=== PATIENT | female | born 1970 | race Caucasian/White ===

== ENCOUNTER 2016-07-31 08:00 | Outpatient (CLI) | payer OTHER | END 2016-07-31 08:01 | disposition home or self-care (01) | DX: E11.9 Type 2 diabetes mellitus without complications (principal) ==

== ENCOUNTER 2022-02-16 09:47 | Outpatient (CLI) | payer BC ==
--- NOTE | 2022-02-17 09:12 | Mammography Report ---
BILATERAL DIGITAL SCREENING MAMMOGRAM 3D/2D WITH EXAGGERATED CC: 02/16/2022 CLINICAL: Routine screening. Baseline exam. No prior exams were available for comparison. There are scattered fibroglandular elements in both br easts. There is possible low density architectural distortion in the left breast at 1 o'clock middle depth. No other significant masses, calcifications, or other findings are seen in either breast. IMPRESSION: INCOMPLETE: NEEDS ADDITIONAL IMAGING EVALUATION The possible low density architectural distortion in the left breast is indeterminate. Additional vi ews with possible ultrasound are recommended. Based on the Tyrer Cuzick model (a risk assessment model) the patients lifetime risk is 6.7% and her 10 year risk is 1.7%. According to the ACR, ACS, and NCCN guidelines, an annual breast MRI exam lainey g with mammogram is recommended if the patients lifetime risk is 20% or greater. This exam was interpreted at Station ID: [id number]. NOTE: For mammograms, a report in lay terms will be sent to the patient. Approximately 15% of breast malignancies will not be visualized mammographically. In the management of a palpable breast mass, a negative mammogram must not discourage biopsy of a clinically suspicious lesion. Electronically Signed By: Triston joseph/carol ann:02/16/2022 13:02:42 ACR BI-RADS Category 0: Incomplete 3340F PARENCHYMAL PATTERN: (A) - The breast(s) demonstrate(s) scattered fibroglandular densities. BI-RADS CATEGORY: (0) - 0 Mammo and [place] [id number] Immediate follow-up LATERALITY: (L)
== END 2022-02-16 09:48 | disposition home or self-care (01) ==
LOC: DI.S 09:47
PROVIDERS: ATTEND Registered Nurse
DX: Z12.31 Encounter for screening mammogram for malignant neoplasm of breast (principal); R92.8 Other abnormal and inconclusive findings on diagnostic imaging of breast

== ENCOUNTER 2022-04-21 10:12 | Outpatient (CLI) | payer BC ==
--- NOTE | 2022-04-22 10:15 | Mammography Report ---
UNILATERAL LEFT DIGITAL DIAGNOSTIC MAMMOGRAM 3D/2D: 04/21/2022 CLINICAL: Patient returns today to evaluate an architectural distortion in the left breast. Comparison is made to exam dated: 02/16/2022 mammogram - [facility]. There are scattered areas of fibroglandular density in the left breast (category b / 25%-50% glandula r tissue). There is possible architectural distortion in the left breast at 1 o'clock middle depth. This is not seen in additional views. This is less prominent. No other significant masses or calcifications are seen in the breast. IMPRESSION: INCOMPLETE: NEEDS ADDITIONAL IMAGING EVALUATION The possible architectural distortion in the left breast is indeterminate. An ultrasound is recommen ded. Based on the Tyrer Cuzick model (a risk assessment model) the patients lifetime risk is 6.7% and her 10 year risk is 1.7%. According to the ACR, ACS, and NCCN guidelines, an annual breast MRI exam lainey g with mammogram is recommended if the patients lifetime risk is 20% or greater. This exam was interpreted at Station ID: [id number]. NOTE: For mammograms, a report in lay terms will be sent to the patient. Approximately 15% of breast malignancies will not be visualized mammographically. In the management of a palpable breast mass, a negative mammogram must not discourage biopsy of a clinically suspicious lesion. Electronically Signed By: Sigifredo Cruz M.D. lc/:04/21/2022 11:13:57 ACR BI-RADS Category 0: Incomplete 3340F PARENCHYMAL PATTERN: (A) - The breast(s) demonstrate(s) scattered fibroglandular densities. BI-RADS CATEGORY: (0) - 0 Ultrasound recall n/a LATERALITY: (B)
--- NOTE | 2022-04-22 10:15 | Ultrasound Report ---
LIMITED ULTRASOUND OF LEFT BREAST: 04/21/2022 CLINICAL: Follow up from addtional views. No prior exams were available for comparison. Color flow ultrasound of the left breast 1 o'clock region was performed. Real-time ultrasonography of left breast was performed with computer guidance to assure complete coverage of the breast tissue and to provide a uniform data set. Images were transferred to a viewing station for 3-D rendering. There are two 0.2-0.3 cm oil cysts in the left breast at 1 o'clock middle depth 3 cm from the nipple. This correlates with mammography findings. IMPRESSION: BENIGN There is no sonographic evidence of malignancy. There are two 0.2-0.3cm oil cysts in the left breast. These are benign. There is no abnormality seen in the left breast to correspond with mammographic abnormality at 1 o'cl ock which likely represents normal fibroglandular tissue. Return to annual mammogram screening schedule is recommended. This exam was interpreted at Station ID: [id number]. Electronically Signed By: Sigifredo Cruz M.D. lc/:04/21/2022 11:18:02 Ultrasound BI-RADS: 2 Benign BI-RADS CATEGORY: (2) - 2 Mammogram [id number] return to screening LATERALITY: (B)
== END 2022-04-21 10:13 | disposition home or self-care (01) ==
LOC: DI 10:12
PROVIDERS: ATTEND Registered Nurse
DX: R92.8 Other abnormal and inconclusive findings on diagnostic imaging of breast (principal); N60.02 Solitary cyst of left breast